=== PATIENT | male | born 1980 | race Caucasian/White ===

== ENCOUNTER 2024-08-04 09:25 | Emergency (ER) | payer OTHER, SELFPAY ==
[2024-08-04 09:26] VITALS: BP 129/81
[2024-08-04 09:56] LABS: % Basophils 0.7 % (0-2); % Eosinophils 2.8 % (0-6); % Immature Granulocytes 0.5 % (0-0.5); % Lymphocytes 29.8 % (20.5-51.1); % Monocytes 15.5 % (1.7-9.3); % Neutrophils 50.7 % (42.2-75.2); Absolute Basophils 0.1 10^3/uL (0-0.2); Absolute Eosinophils 0.2 10^3/uL (0-0.7); Absolute Lymphocytes 2.3 10^3/uL (1.2-3.4); Absolute Monocytes 1.2 10^3/uL (0.1-0.6); Absolute Neutrophils 3.9 10^3/uL (1.4-6.5); Hematocrit 43.6 % (39.0-52.0); Hemoglobin 14.9 g/dL (13.0-18.0); Mean Corp Hgb Conc. 34.2 g/dL (33.0-37.0); Mean Corpuscular Volume 84.8 fL (80.0-94.0); Mean Platelet Volume 10.4 fL (7.4-10.4); Nucleated Red Blood Cells % 0 % (-); Platelet Count 150 10^3/uL (130-400); Red Blood Cell Count 5.14 10^6/uL (4.70-6.10); White Blood Cell Count 7.6 10^3/uL (4.8-10.8)
[2024-08-04 10:09] LABS: ALT (SGPT) 65 U/L (0-50); AST (SGOT) 40 U/L (17-59); Albumin 4.4 g/dl (3.5-5.0); Alkaline Phosphatase 51 U/L (38-126); Blood Urea Nitrogen 15 mg/dl (9-20); Calcium 9.4 mg/dl (8.4-10.2); Carbon Dioxide 25 mmol/L (22-30); Chloride 105 mmol/L (98-107); Glucose 110 mg/dl (70-99); Potassium 3.8 mmol/L (3.5-5.1); Sodium 139 mmol/L (135-145); Total Bilirubin 0.7 mg/dl (0.2-1.3); Total Protein 7.7 g/dl (6.3-8.2); eGFR > 60.00
--- NOTE | 2024-08-04 10:48 | ED.GENMED ---
History of Present Illness
General
Chief Complaint: Abdominal Symptoms
Source: patient
Time Seen by Provider: 08/04/24 09:39
History of Present Illness
History of Present Illness:
44-year-old male presents to the emergency room complaining of diarrhea and crampy abdominal pain. Patient has had frequent episodes of diarrhea over the past 4 to 5 days. The symptoms started after taking his first dose of Zepbound for weight
loss. He took 2.5 mg. Patient has mild nausea but has not vomited. He states the stools just watery but there is no blood or mucus. No sick contacts. No recent travel. He consumes municipal water.
Phy Exam
Physical Exam
Physical Exam:
General: Awake, Alert, Oriented X3. No acute distress. High BMI
Vitals: unremarkable
Head: Atraumatic
Eyes: Pupils equal, EOMI
Throat: Airway intact, no exudates
Neck: Trachea midline
Lungs: Clear and equal b/l
Heart: Regular rate, no murmurs
Abd: Soft, Nontender, No pulsatile mass
Neuro: Nonfocal
Skin: Warm, dry, no rash
Extremities: pulses equal b/l, no edema
Course
Orders/Labs/Results
Orders:
Orders
08/04/24 09:48
CMP [Comprehensive Metabolic Panel] Urgent
Complete Blood Count/With Diff Urgent
08/04/24 10:48
Dicyclomine [Bentyl] 20 mg PO NOW STA
Abnormal Lab Results
08/04/24
09:48
Absolute Monos (auto) 1.2 H 10^3/uL
(0.1-0.6)
Monocytes % 15.5 H %
(1.7-9.3)
Glucose 110 H mg/dl
(70-99)
ALT 65 H U/L
(0-50)
08/04/24 09:48
08/04/24 09:48
Vital Signs
Initial and Last Documented VS:
Initial Vital Signs
Temp Pulse Resp BP Pulse Ox
98.4 F 87 18 129/81 99
08/04/24 09:26 08/04/24 09:26 08/04/24 09:26 08/04/24 09:26 08/04/24 09:26
Last Documented Vital Signs
Temp Pulse Resp BP Pulse Ox
98.4 F 81 18 122/71 97
08/04/24 09:26 08/04/24 13:09 08/04/24 13:09 08/04/24 13:09 08/04/24 13:09
MDM/Problems Addressed
Differential Diagnosis Includes:
Diarrhea from adverse medication effect, viral enteritis, C. difficile.
MDM/Problems Addressed:
Patient presents with crampy abdominal pain and diarrhea. Patient feels better after IV fluids. His labs are unremarkable. Patient actually has had only 1 loose stool this morning. Perhaps he has reached the beginning of the end of his diarrhea.
He took the Zepbound 1 week ago and is likely any diarrhea related to its use should be trailing off. Recommend holding off on further doses until he discusses his symptoms with the doctor who prescribed it.
*Pulse Oximetry
Patient hypoxic: no
*Critical Care Note
Total Time (30-74mins, 75-104mins- exclusive of procedures): Not Applicable
ED Attending Note
-
Portions of this chart may have been created with voice recognition software.� Occasional wrong word or��sound alike� substitutions may have occurred due to the inherent limitations of voice recognition software.
Discharge Plan
Departure
Patient Disposition: Home (Routine Discharge)
Date of Disposition: 08/04/24
Time of Disposition: 12:26
Patient with high blood pressure during this ER visit?: No
Condition: Good
Discharge Problem:
Diarrhea
Instructions: Diarrhea in teens and adults, Dehydration, Adult (DC)
Prescriptions:
New
dicyclomine 20 mg tablet
20 mg PO QID PRN (Reason: abdominal cramping) Qty: 10 0RF
Referrals:
Kj Melendez, DO [Family Provider] -
Activity Restrictions/Additional Instructions:
You came to the emergency today for diarrhea and abdominal cramping. Found that you are 48 hydrated. I suspect your diarrhea is related to your new medication. This class of medications does cause significant GI upset and diarrhea in a small
percentage of patients. I would hold the medication until you discuss it with your primary care provider or whomever prescribed the medication. Though we cannot excluded completely I think is unlikely this is infectious. I think it is safe that
you use Imodium. Return if you feel that your symptoms are getting worse.
Interventions
Interventions:
*Risk Screen - Suicide Last Done: 08/04/24 09:26
*General Assessment Last Done: 08/04/24 09:26
*Neglect/Abuse Screening Last Done: 08/04/24 10:08
*ED- Fall Risk Assessment Last Done: 08/04/24 10:08
*ED COVID-19 Vaccine History Last Done: 08/04/24 10:08
*Nursing Disposition Last Done: 08/04/24 13:10
TQ-Alwmtp-Ruxkmnqwqv Assessment Last Done: 08/04/24 10:07
Discharge Date and Time
Discharge Date/Time: 08/04/24 13:10
Print Language: UKRAINIAN
[2024-08-04] MEDS: BENTYL 20 MG PO (11:13)
[2024-08-04 13:09] VITALS: BP 122/71
== END 2024-08-04 13:10 | disposition home or self-care (01) ==
LOC: EMR 09:25
PROVIDERS: EMERGENCY PHYSICIAN Emergency Medicine; FAMILY PHYSICIAN Family Medicine
DX: R19.7 Diarrhea, unspecified (principal); R10.9 Unspecified abdominal pain
CPT/HCPCS: 99283; 80053; 85025

== ENCOUNTER → 2024-11-28 08:11 | Outpatient (REF) | payer OTHER, SELFPAY | LOC: WOUND 08:11 | PROVIDERS: ATTENDING PHYSICIAN Surgery; FAMILY PHYSICIAN Family Medicine | DX: I87.311 Chronic venous hypertension (idiopathic) with ulcer of right lower extremity (principal); L97.211 Non-pressure chronic ulcer of right calf limited to breakdown of skin; I89.0 Lymphedema, not elsewhere classified; E66.01 Morbid (severe) obesity due to excess calories; I10 Essential (primary) hypertension | CPT/HCPCS: 99203 ==

== ENCOUNTER 2025-02-06 06:43 | Outpatient (RCR) | payer OTHER, SELFPAY | END 2025-02-06 23:59 | disposition home or self-care (01) | LOC: RPT 06:43 | PROVIDERS: ATTENDING PHYSICIAN Family Medicine | DX: I89.0 Lymphedema, not elsewhere classified (principal); Z73.6 Limitation of activities due to disability; R26.89 Other abnormalities of gait and mobility | CPT/HCPCS: 97110; 97163; 97530 ==

== ENCOUNTER 2025-03-17 07:16 | Outpatient (RCR) | payer OTHER, SELFPAY | END 2025-03-17 23:59 | disposition home or self-care (01) | LOC: RPT 07:16 | PROVIDERS: ATTENDING PHYSICIAN Family Medicine | DX: I89.0 Lymphedema, not elsewhere classified (principal); Z73.6 Limitation of activities due to disability; R26.89 Other abnormalities of gait and mobility | CPT/HCPCS: 97016; 97110; 97140; 97530 ==